=== PATIENT | male | born 2000 | race Caucasian/White ===

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

== ENCOUNTER 2018-07-05 06:57 | Emergency (ER) | payer OTHER | END 2018-07-05 08:05 | disposition other institution (70) | LOC: ED 06:57 | DX: Z02.89 Encounter for other administrative examinations (principal) ==

== ENCOUNTER 2018-07-05 06:57 | Emergency (ER) | payer OTHER ==
[~2018-07-05] VITALS: Ht 172.7 cm; Wt 72.6 kg
[2018-07-05 07:00] VITALS: Ht 172.7 cm; Wt 72.6 kg
[2018-07-05 08:05] VITALS: BP 171/81
== END 2018-07-05 08:05 | disposition other institution (70) ==
LOC: ED 06:57
DX: S00.511A Abrasion of lip, initial encounter (principal); S60.811A Abrasion of right wrist, initial encounter; S80.212A Abrasion, left knee, initial encounter; S80.211A Abrasion, right knee, initial encounter; X58.XXXA Exposure to other specified factors, initial encounter; Y93.89 Activity, other specified; Y92.89 Other specified places as the place of occurrence of the external cause; Y99.8 Other external cause status
CPT/HCPCS: 90715; Q0092